=== PATIENT | female | born 1970 | race African-American/Black ===

== ENCOUNTER 2017-11-06 21:19 | Emergency (ER) | payer SELFPAY ==
[2017-11-07] MEDS ORDERED: HYDROCODONE/ACETAMINOPHEN 5-325 MG (6 TAB/ER DISP) PO PRN (00:12)
[2017-11-07] MEDS ORDERED: IBUPROFEN 600 MG TABLET PO ONE (00:12)
[2017-11-07] MEDS ORDERED: MORPHINE SULFATE IR 15 MG TABLET PO ONE (00:12)
[2017-11-07] MEDS ORDERED: SILVER SULFADIAZINE 1% CREAM 25 GM TP ONE (00:12)
[2017-11-07] MEDS ORDERED: ONDANSETRON ODT 4 MG TAB (6 TAB/ER DISP) PO PRN (00:12)
[2017-11-07] MEDS ORDERED: ACETAMINOPHEN 325 MG TABLET PO ONE (00:12)
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
[2017-11-07 01:41] VITALS: BP 138/89
== END 2017-11-07 00:53 | disposition home or self-care (01) ==
LOC: ER 21:19
DX: T22.291A Burn of second degree of multiple sites of right shoulder and upper limb, except wrist and hand, initial encounter (principal); X08.8XXA Exposure to other specified smoke, fire and flames, initial encounter; W40.9XXA Explosion of unspecified explosive materials, initial encounter
CPT/HCPCS: 99283